=== PATIENT | female | born 1990 | race Caucasian/White ===

== ENCOUNTER 2020-08-06 06:18 | Inpatient (IN) ==
[2020-08-06] MEDS: D5 1/2 NS 1000 ML 1,000 ML IV SCH ×5 (06:32→22:30)
[2020-08-06] MEDS ORDERED: ANCEF VIAL 1 GRAM IVP ONE (06:32)
[2020-08-06] MEDS ORDERED: ANCEF 1 GRAM IV PREMIX* 1 G/50 ML BAG IV ONE (06:34)
[2020-08-06] MEDS ORDERED: ProvayBLUE 0.5% ONE (06:50)
[2020-08-06] MEDS ORDERED: DECADRON INJ ONE ×2 (06:53→07:15)
[2020-08-06] MEDS ORDERED: FENTANYL INJ 100 mcg ONE (06:53)
[2020-08-06] MEDS ORDERED: TORADOL 30 MG VIAL ONE (06:53)
[2020-08-06] MEDS ORDERED: OFIRMEV IV 1000 MG VIAL 1,000 MG/100 ML VIAL IV ONE (06:54)
[2020-08-06] MEDS ORDERED: ZEMURON 50 MG VIAL ONE ×2 (06:54→07:15)
[2020-08-06] MEDS ORDERED: NS 1000 ML 1,000 ML ONE (06:54)
[2020-08-06 07:03] VITALS: BMI 37.2
[2020-08-06] MEDS ORDERED: DIPRIVAN VIAL ONE (07:15)
[2020-08-06] MEDS ORDERED: XYLOCAINE 1 % (PLAIN) ONE (07:15)
[2020-08-06] MEDS ORDERED: ROBINUL ONE (07:15)
[2020-08-06] MEDS ORDERED: VERSED ONE (07:15)
[2020-08-06] MEDS ORDERED: QUELICIN (OR ANECTINE) ONE (07:15)
[2020-08-06] MEDS ORDERED: NEOSTIGMINE INJ ONE (07:15)
[2020-08-06] MEDS ORDERED: ZOFRAN INJ 4 MG VIAL ONE (07:15)
[2020-08-06] MEDS ORDERED: ULTANE GAS IN ONE (07:15)
[2020-08-06] MEDS ORDERED: DILAUDID INJ ONE (09:29)
[2020-08-06] MEDS ORDERED: ZOFRAN INJ 4 MG VIAL IVP PRN ×2 (09:30→09:53)
[2020-08-06] MEDS ORDERED: PHENERGAN INJ 25 MG IM PRN (09:30)
[2020-08-06] MEDS ORDERED: BENADRYL INJ 50 MG VIAL IVP PRN ×2 (09:30→09:53)
[2020-08-06] MEDS ORDERED: REGLAN INJ 10 MG VIAL IVP PRN (09:30)
[2020-08-06] MEDS: DILAUDID INJ IVP PRN ×2 (09:32→09:44)
[2020-08-06] MEDS: MORPHINE SULFATE PCA 30 MG IVP PRN ×2 (10:50→21:40)
[2020-08-06] MEDS: TORADOL 30 MG VIAL IVP PRN ×2 (14:30→22:07)
[2020-08-06] MEDS ORDERED: NS IRRIGATION* 1,000 ML ONE (15:03)
[2020-08-06] MEDS ORDERED: DILAUDID INJ IVP ONE (15:33)
[2020-08-06] MEDS ORDERED: XANAX PO PRN (16:51)
[2020-08-07] MEDS: D5 1/2 NS 1000 ML 1,000 ML IV SCH ×3 (02:33→13:32)
[2020-08-07 06:18] LABS: BLOOD UREA NITROGEN 7 mg/dL (7-18); CALCIUM 7.8 mg/dL (8.5-10.1); CARBON DIOXIDE 27.7 mmol/L (21-32); CHLORIDE 105 mmol/L (98-107); COR NA(FOR HYPERGLY) 140 mmol/L (136-145); SODIUM 139 mmol/L (136-145); eGFR NON BLACK RACES > 60 (>60)
[2020-08-07 07:06] LABS: BASOPHILS % (AUTO) 0.1 % (0.2-1.0); EOSINOPHILS % (AUTO) 0.2 % (0.9-2.9); HEMATOCRIT 21.3 % (36.0-47.0); LYMPHOCYTES # (AUTO) 0.9 X10^3/uL (1.3-2.9); LYMPHOCYTES % (AUTO) 8.4 % (21.0-51.0); MEAN CORPUSCULAR HEMOGLOBIN 24.4 pg (27.0-34.0); MEAN CORPUSCULAR HGB CONC 31.8 g/dL (33.0-35.0); MEAN CORPUSCULAR VOLUME 76.8 fL (80.0-100.0); MEAN PLATELET VOLUME 8.4 fL (7.4-11.0); MONOCYTES # (AUTO) 0.6 x10^3/uL (0.3-0.8); MONOCYTES % (AUTO) 5.9 % (0.0-13.0); NEUTROPHILS # (AUTO) 8.9 x10^3/uL (2.2-4.8); NEUTROPHILS % (AUTO) 85.4 % (42.0-75.0); PLATELET COUNT 253 X10^3/uL (150.0-450.0); RED BLOOD COUNT 2.78 X10^6/uL (3.5-5.4); RED CELL DISTRIBUTION WIDTH 17.5 % (11.6-16.5); WHITE BLOOD COUNT 10.5 X10^3/uL (3.6-10.0)
[2020-08-07 07:09] LABS: HEMOGLOBIN 6.8 g/dL (12.0-16.0)
[2020-08-07] MEDS: BUSPAR PO SCH ×2 (08:26→20:50)
[2020-08-07] MEDS: PROTONIX TAB 40 MG PO SCH (08:27)
[2020-08-07] MEDS: COLACE CAP 100 MG PO SCH ×2 (08:27→20:50)
[2020-08-07] MEDS: WELLBUTRIN XL 150 MG (DAILY) PO SCH (08:27)
[2020-08-07] MEDS: WELLBUTRIN XL 300 MG (DAILY) PO SCH (08:27)
[2020-08-07] MEDS: MOTRIN TAB 800 MG PO PRN ×2 (08:52→17:51)
[2020-08-07] MEDS ORDERED: WELLBUTRIN XL 150 MG (DAILY) PO SCH (09:00)
[2020-08-07] MEDS ORDERED: WELLBUTRIN XL 300 MG (DAILY) PO SCH (09:00)
[2020-08-07] MEDS: PERCOCET TAB 5/325 MG PO PRN ×4 (10:11→23:13)
[2020-08-07 12:57] LABS: HEMOGLOBIN 7.3 g/dL (12.0-16.0)
[2020-08-07] MEDS: NICOTINE PATCH TD SCH (13:49)
[2020-08-07] MEDS: BACTROBAN TOPICAL OINT TOP SCH ×2 (13:49→22:36)
[2020-08-07] MEDS: FERROUS GLUCONATE PO SCH (16:25)
[2020-08-07] MEDS ORDERED: MOTRIN TAB 800 MG PO ONE (17:50)
[2020-08-08] MEDS: D5 1/2 NS 1000 ML 1,000 ML IV SCH (00:57)
[2020-08-08] MEDS: PERCOCET TAB 5/325 MG PO PRN (04:11)
[2020-08-08] MEDS: BACTROBAN TOPICAL OINT TOP SCH (05:06)
[2020-08-08 07:48] VITALS: BP 124/69
[2020-08-08] MEDS: FERROUS GLUCONATE PO SCH (09:14)
[2020-08-08] MEDS: BUSPAR PO SCH (09:14)
[2020-08-08] MEDS: COLACE CAP 100 MG PO SCH (09:14)
[2020-08-08] MEDS: NICOTINE PATCH TD SCH (09:15)
[2020-08-08] MEDS: WELLBUTRIN XL 150 MG (DAILY) PO SCH (09:16)
[2020-08-08] MEDS: PROTONIX TAB 40 MG PO SCH (09:16)
[2020-08-08] MEDS: WELLBUTRIN XL 300 MG (DAILY) PO SCH (09:16)
== END 2020-08-08 09:26 | disposition home or self-care (01) | DRG 743 ==
LOC: MED/SURG 06:18 → OBS 08-07 16:44
PROVIDERS: ADMIT Specialist; ATTEND Specialist
DX: N83.292 Other ovarian cyst, left side; R10.2 Pelvic and perineal pain; D25.9 Leiomyoma of uterus, unspecified; N83.291 Other ovarian cyst, right side; N80.8 Other endometriosis; N92.5 Other specified irregular menstruation